=== PATIENT | male | born 1995 | race Hispanic/Latino ===

== ENCOUNTER 2018-02-03 12:50 | Emergency (ER) | payer BC, MEDICAID ==
[2018-02-03] MEDS ORDERED: KETOROLAC TROMETHAMINE 30MG/ML ONE (14:12)
[2018-02-03 14:27] LABS: BASOPHILS % (AUTO) 0.3 % (0.0-5.0); EOSINOPHILS % (AUTO) 1.7 % (0.0-8.0); HEMATOCRIT 48.6 % (42-54); MEAN CORPUSCULAR HEMOGLOBIN 29.9 pg (27.0-33.0); MEAN CORPUSCULAR HGB CONC 34.3 g/dL (32.0-36.0); MEAN CORPUSCULAR VOLUME 87.2 fL (80-100); MONOCYTES % (AUTO) 8.3 % (3.0-13.0); NEUTROPHILS % (AUTO) 72.7 % (40.0-77.0); PLATELET COUNT (AUTO) 268 K/uL (130-400); RED BLOOD CELL COUNT(AUTO) 5.58 MIL/uL (4.50-6.20); RED CELL DISTRIBUTION WIDTH 12.6 % (11.0-15.5); WHITE BLOOD COUNT (AUTO) 9.2 K/uL (4.8-10.8)
[2018-02-03 14:38] LABS: CREATININE 0.9 mg/dL (0.5-1.5); POTASSIUM 3.7 mmol/L (3.5-5.1)
[2018-02-03 14:56] LABS: CRP QUANTITATIVE 29.9 mg/L (0.00-9.0)
[2018-02-03 15:33] LABS: ERYTHROCYTE SEDIMENTATION RATE 10 MM/HR (0-15)
== END 2018-02-03 15:58 | disposition home or self-care (01) ==
LOC: EDH 12:50
DX: S50.312A Abrasion of left elbow, initial encounter (principal); S50.812A Abrasion of left forearm, initial encounter; L03.114 Cellulitis of left upper limb; Z72.0 Tobacco use; W22.8XXA Striking against or struck by other objects, initial encounter; Y93.89 Activity, other specified; Y92.89 Other specified places as the place of occurrence of the external cause; Y99.8 Other external cause status
CPT/HCPCS: 36415; 73080; 80048; 85025; 85651; 86140; 87040 ×2; 96374; 99285; J1885